=== PATIENT | female | born 1995 | race Caucasian/White ===

== ENCOUNTER 2018-12-30 15:45 | Outpatient (CLI) | payer SELFPAY | END 2018-12-30 15:46 | disposition short-term general hospital (02) | LOC: EMS 15:45 | PROVIDERS: ATTEND Surgery | DX: O99.89 Other specified diseases and conditions complicating pregnancy, childbirth and the puerperium (principal); R10.9 Unspecified abdominal pain; R42 Dizziness and giddiness; R20.2 Paresthesia of skin | CPT/HCPCS: A0425; A0429 ==